=== PATIENT | female | born 1980 | race Caucasian/White ===

== ENCOUNTER → 2017-10-30 | Outpatient (CLI) | payer OTHER ==
[~2017-10-30] MED LIST: FOLIC ACID 40400 MC1 PO; UNICOMPLEX M TA1 TA1 PO
== END ==
LOC: ULTRA 12:41
DX: O34.81 Maternal care for other abnormalities of pelvic organs, first trimester (principal); N83.201 Unspecified ovarian cyst, right side; Z3A.01 Less than 8 weeks gestation of pregnancy

== ENCOUNTER → 2017-12-31 | Outpatient (CLI) | payer OTHER ==
[2017-12-31 08:56] LABS: CREATININE 0.7 mg/dL (0.6-1.0)
== END ==
LOC: CAT 08:19
PROVIDERS: Internal Medicine Cardiovascular Disease
DX: Z01.812 Encounter for preprocedural laboratory examination (principal); I25.10 Atherosclerotic heart disease of native coronary artery without angina pectoris; I44.7 Left bundle-branch block, unspecified

== ENCOUNTER → 2019-12-20 | Outpatient (CLI) | payer OTHER | LOC: LAB 08:58 | PROVIDERS: ATTEND Family Medicine | DX: Z20.828 Contact with and (suspected) exposure to other viral communicable diseases (principal) ==

== ENCOUNTER → 2020-01-18 | Outpatient (CLI) | payer OTHER | LOC: BC 08:26 | PROVIDERS: ATTEND Family Medicine | DX: Z12.31 Encounter for screening mammogram for malignant neoplasm of breast (principal) ==

== ENCOUNTER → 2020-01-31 | Outpatient (CLI) | payer OTHER | LOC: SJCVCIMAG 09:43 | PROVIDERS: ATTEND Internal Medicine Cardiovascular Disease | DX: I49.3 Ventricular premature depolarization (principal); E78.5 Hyperlipidemia, unspecified ==

== ENCOUNTER → 2020-03-14 | Outpatient (CLI) | payer OTHER ==
[2020-03-14 13:24] LABS: HEMATOCRIT 43.2 % (37.0-47.0); HEMOGLOBIN 14.4 gm/dL (12.0-15.0); MCH 31.2 pg (26.0-34.0); MCHC 33.4 g/dL (28.0-37.0); MCV 93.4 fL (80.0-100.0); RBC 4.62 mil/uL (4.20-5.00); RDW 12.7 % (10.5-14.5); WBC 4.6 thou/uL (4.0-11.0)
[2020-03-14 13:40] LABS: ALBUMIN 4.4 g/dL (3.4-5.0); CALCIUM 9.2 mg/dL (8.5-10.1); CREATININE 0.8 mg/dL (0.6-1.0); POTASSIUM 4.1 mmol/L (3.5-5.1); TOTAL BILIRUBIN 0.3 mg/dL (0.2-1.0); TOTAL PROTEIN 8.3 g/dL (6.4-8.2)
== END ==
LOC: LAB 12:38
PROVIDERS: ATTEND Family Medicine
DX: L50.9 Urticaria, unspecified (principal)

== ENCOUNTER → 2020-03-29 | Outpatient (CLI) | payer OTHER ==
[2020-03-30 15:08] LABS: ANTI-DNA SCREEN 2 IU/mL (0-9); ANTI-RNP 0.2 AI (0.0-0.9)
[2020-03-31 17:07] LABS: ALTERNARIA <0.10 kU/L (Class 0); ASPERGILLUS IGE <0.10 kU/L (Class 0); BERMUDA GRASS <0.10 kU/L (Class 0); BOXELDER/MAPLE <0.10 kU/L (Class 0); CLADOSPORIUM <0.10 kU/L (Class 0); COCKROACH <0.10 kU/L (Class 0); COTTONWOOD <0.10 kU/L (Class 0); D. FARINAE <0.10 kU/L (Class 0); D. PTERONYSSINUS <0.10 kU/L (Class 0); DOG DANDER <0.10 kU/L (Class 0); ELM <0.10 kU/L (Class 0); MOUNTAIN CEDAR <0.10 kU/L (Class 0); MULBERRY IGE <0.10 kU/L (Class 0); OAK <0.10 kU/L (Class 0); PENICILLIUM NOTATUM <0.10 kU/L (Class 0); RUSSIAN THISTLE IGE <0.10 kU/L (Class 0); SHORT RAGWEED <0.10 kU/L (Class 0); TIMOTHY IGE <0.10 kU/L (Class 0); WHITE ASH IGE <0.10 kU/L (Class 0)
== END ==
LOC: LAB 12:32
PROVIDERS: ATTEND Family Medicine
DX: R21 Rash and other nonspecific skin eruption (principal)